=== PATIENT | male | born 1930 | race Caucasian/White ===

== ENCOUNTER → 2018-10-13 | Outpatient (CLI) | payer OTHER, MEDICARE | LOC: RAD 15:13 | DX: J44.9 Chronic obstructive pulmonary disease, unspecified (principal); J98.4 Other disorders of lung; I51.7 Cardiomegaly ==

== ENCOUNTER → 2019-10-19 | Outpatient (CLI) | payer OTHER, MEDICARE | LOC: RAD 13:00 | PROVIDERS: ATTEND Internal Medicine | DX: J92.9 Pleural plaque without asbestos (principal); J44.9 Chronic obstructive pulmonary disease, unspecified; I51.7 Cardiomegaly ==